=== PATIENT | female | born 1995 | race Caucasian/White ===

== ENCOUNTER → 2018-08-16 | Outpatient (CLI) | payer BC | END | disposition home or self-care (01) | LOC: NEUROMAIN 09:01 | PROVIDERS: ATTEND Otolaryngology | DX: R42 Dizziness and giddiness (principal) | CPT/HCPCS: 92537; 92540 ==

== ENCOUNTER 2018-09-18 10:57 | Day surgery (SDC) | payer BC ==
[2018-09-14 09:54] VITALS: BMI 24.2
[~2018-09-18 10:57] MED LIST: SODIUM CHLORIDE 0.9% 1,000 ML IV SCH
[2018-09-18 11:29] VITALS: PULSE 100
[2018-09-18] MEDS ORDERED: SODIUM CHLORIDE 0.9% 1,000 ML IV SCH (14:00)
[2018-09-18 15:01] VITALS: RESP 18
[2018-09-18 15:03] VITALS: BP 107/62
--- NOTE | 2018-09-18 19:29 | P.PCN ---
Preoperative Diagnosis: Diagnosis Recurrent presyncope for 3 years. History of syncope Symptoms almost 3 times a week Twelve-lead ECG shows sinus rhythm narrow QRS normal HI interval normal QT interval normal ST segments no delta waves no epsilon waves Tilt table test per protocol This line blood pressure 108/60 mmHg baseline 172 beats a minute patient was tilted upright at an angle of 70 per protocol was the end of the procedure the patient's heart rate increased 227 beats a minute, sinus tachycardia this was followed by a drop in blood pressure to 80 mmHg. Thereafter to 51/36. His mercury. She felt a dizzy and blacked out briefly When she was laid supine her blood pressure normalized and heart rate normalized. No bradycardia noted Impression Normal twelve-lead ECG Typical vasovagal syncope, neurocardiogenic syncope
== END 2018-09-18 14:45 | disposition home or self-care (01) ==
LOC: CATHEP 10:57
PROVIDERS: ATTEND Internal Medicine Clinical Cardiac Electrophysiology
DX: R55 Syncope and collapse (principal)
CPT/HCPCS: 81025; 93660